=== PATIENT | male | born 1980 | race Caucasian/White ===

== ENCOUNTER 2018-07-24 22:40 | Day surgery (SDC) | payer OTHER ==
[~2018-07-24] VITALS: Ht 195.6 cm; Wt 83.5 kg
[2018-07-24 22:51] VITALS: BP 136/67; TEMP 85.5
[2018-07-25 00:30] VITALS: BP 117/61; PULSE 76
[2018-07-25 00:45] VITALS: BP 123/68; PULSE 71
[2018-07-25 01:00] VITALS: BP 112/63; PULSE 76
[2018-07-25 01:15] VITALS: BP 109/58; PULSE 84
== END 2018-07-25 01:35 | disposition home or self-care (01) ==
LOC: SURG 22:40 → SDCO 22:40
DX: T18.128A Food in esophagus causing other injury, initial encounter (principal)
CPT/HCPCS: OP; J2250; J3010

== ENCOUNTER 2018-10-13 08:41 | Day surgery (SDC) | payer OTHER ==
[~2018-10-13] VITALS: Ht 193 cm; Wt 89.0 kg
[2018-10-13] VITALS (7 sets, daily range): BP systolic 92–115; BP diastolic 51–77; PULSE 58–77; TEMP 97.1–97.5
--- NOTE | 2018-10-13 10:00 | NUR ---
The patient is wheeled to [facility] via cart by Jacki TOVAR. The patient ambulates to the chair with a steady gait and nurse standby assist. The patient's vital signs are stable. Report is obtained. The patient requests sprite and crackers which are brought to him at this time. The call light is within reach and the patient has contacted his to come to the hospital. Will continue to monitor.
--- NOTE | 2018-10-13 10:15 | NUR ---
The patient's vital signs are stable. The patient tolerated the crackers and sprite and requests more which is brought to him at this time. The call light is within reach. Will continue to monitor.
--- NOTE | 2018-10-13 10:45 | NUR ---
The patient's vital signs are stable. The patient denies any complaints or concerns at this time. The patient is waiting for Dr. Goetz to talk to him. The call light is within reach. Will continue to monitor.
--- NOTE | 2018-10-13 11:15 | NUR ---
The patient's vital signs are stable. The patient has talked to Dr. Goetz. The patient states that his will be at the hospital to take him home around 1130. The discharge instructions will be reviewed with the patient.
--- NOTE | 2018-10-13 11:19 | NUR ---
The discharge instructions are reviewed with the patient and all questions are answered. The IV is removed and the tip is intact and a dressing is applied. The patient changes into his personal clothes. The patient will call when his arrives at the hospital and he will be wheeled to the patient entrance at that time. The call light is within reach.
--- NOTE | 2018-10-13 11:56 | NUR ---
The patient is still waiting on his to arrive at the hospital to be discharged. Will continue to monitor until she arrives.
--- NOTE | 2018-10-13 12:00 | NUR ---
The patient is wheeled to the patient entrance via wheelchair to be discharged home via personal vehicle by his . The patient is sent home with his discharge instructions and education packet.
== END 2018-10-13 12:00 | disposition home or self-care (01) ==
LOC: SDCO 08:41
DX: K20.0 Eosinophilic esophagitis (principal); K29.30 Chronic superficial gastritis without bleeding
CPT/HCPCS: J2250; J3010; J7030